=== PATIENT | female | born 1965 | race Caucasian/White ===

== ENCOUNTER 2021-05-11 11:01 | Emergency (ER) | payer BC ==
[2021-05-11] MEDS: Lactated Ringers 1,000 ML IV ONE (11:32)
[2021-05-11 12:00] LABS: CHLORIDE,CL 100 mmol/L (98-107); SODIUM,NA 138 mmol/L (136-145)
[2021-05-11 12:01] LABS: ANION GAP 14.9 mmol/L (5-15)
--- NOTE | 2021-05-11 12:23 | EDM.PDOC ---
ED HPI GENERAL MEDICAL PROBLEM - General Chief Complaint: General Time Seen by Provider: 05/11/21 11:05 Source of Information: Reports: Patient, EMS, Old Records History Limitations: Reports: No Limitations - History of Present Illness INITIAL COMMENTS - FREE TEXT/NARRATIVE: Pt. presents to ER via EMS. Pt. is from [place] and is here in [place] for a sports event. Pt. has a history of stage 4B non small cell lung carcinoma. She is undergoing palliative chemotherapy and is due for a run on Thursday. Pt. son states that the patient developed nausea and vomiting today. She states that she only vomited once today and states once yesterday AM as well. Pt. states that she has not been having any diarrhea or abdominal pain. Denies any bloody stools. Son states that she also appeared to be confused and was non-communicative at times. EMS relates that she had an episode where she was minimally responsive prior to arrival in ER. EMS was summoned. They state that pt. was initially dismissive of her symptoms and was resistant to coming to ER. She eventually did consent to transport to ER. Pt. was hypotensive in the field with blood pressure in the 80s/50s and with heart rate of 115. Pt. states that she has been afebrile. She denies any cough. No chest pain or shortness of breath. Denies any jaw, arm, neck or back pain. Denies any rashes or erythema. She denies any sore throat, rhinorrhea, dark or bloody stools. Pt. has a history of orthostatic hypotension. She frequently receives IV saline infusions at [facility]. Pt. is on dexamethasone 4 mg 3 times per day. Pt. denies any facial or extremity numbness, headache, or unilateral extremity weakness. Onset: Today Onset Date: 05/11/21 Location: Reports: Generalized Associated Symptoms: Reports: Confusion, Nausea/Vomiting. Denies: Chest Pain, Cough, cough w sputum, Diaphoresis, Fever/Chills, Headaches, Loss of Appetite, Malaise, Rash, Seizure, Shortness of Breath, Syncope, Weakness - Related Data Allergies Allergy/AdvReac Type Severity Reaction Status Date / Time Penicillins Allergy Other Verified 05/11/21 11:26 ED ROS GENERAL - Review of Systems Review Of Systems: See Below Constitutional: Reports: No Symptoms HEENT: Reports: No Symptoms Respiratory: Reports: No Symptoms Cardiovascular: Reports: No Symptoms Endocrine: Reports: No Symptoms GI/Abdominal: Reports: Nausea, Vomiting. Denies: Abdominal Pain, Black Stool, Bloody Stool, Diarrhea, Difficulty Swallowing, Distension, Hematemesis, Hematochezia, Melena : Reports: No Symptoms Musculoskeletal: Reports: No Symptoms Skin: Reports: No Symptoms Neurological: Reports: Confusion, Other (episodes of decreased level of consciousness.). Denies: Headache, Paresthesia, Seizure, Tremors, Change in Speech Psychiatric: Reports: No Symptoms Hematologic/Lymphatic: Reports: Other (See HPI) ED EXAM, GENERAL - Physical Exam Exam: See Below Exam Limited By: No Limitations General Appearance: Alert, WD/WN, No Apparent Distress Eye Exam: Bilateral Eye: EOMI, Normal Fundi, Normal Inspection, PERRL Throat/Mouth: Normal Inspection, Normal Lips, Normal Teeth, Normal Oropharynx, Normal Voice, No Airway Compromise Head: Atraumatic, Normocephalic Neck: Normal Inspection, Supple, Non-Tender, Full Range of Motion Respiratory/Chest: No Respiratory Distress, Lungs Clear, Normal Breath Sounds, No Accessory Muscle Use, Chest Non-Tender Cardiovascular: Normal Peripheral Pulses, Regular Rate, Rhythm, No Edema, No JVD, No Murmur Peripheral Pulses: 4+: Radial (L) GI/Abdominal: Soft, Non-Tender, No Organomegaly, No Distention, No Mass (Female) Exam: Deferred Rectal (Female) Exam: Deferred Back Exam: Normal Inspection, Full Range of Motion Extremities: Normal Inspection, Normal Range of Motion, Non-Tender, No Pedal Edema, Normal Capillary Refill Neurological: Alert, Oriented, CN II-XII Intact, Normal Cognition, No M otor/Sensory Deficits, Other (Pt. has been alert and oriented since arriving in ER. She is alert to time, date, and place. No pronator drift. Tool Hardener strength 5/5. Strength in lower extremities are symmetrical.) Psychiatric: Anxious, Tearful Skin Exam: Warm, No Rash, Pallor #1 Interpretation EKG Date: 05/11/21 Rhythm: NSR [place]: Normal P-Wave: Present QRS: Normal ST-T: Normal QT: Normal Course - Vital Signs Last Recorded V/S: Last Vital Signs Temp 37.2 C 05/11/21 11:05 Pulse 104 H 05/11/21 13:00 Resp 16 05/11/21 13:00 BP 90/60 05/11/21 13:00 Pulse Ox 95 05/11/21 13:00 - Orders/Labs/Meds Orders: Active Orders 24 hr Category Date Time Status CULTURE BLOOD [BC] Stat Lab 05/11/21 12:35 Received CULTURE BLOOD [BC] Stat Lab 05/11/21 12:39 Received CULTURE URINE [RM] Stat Lab 05/11/21 12:55 Received Lactated Ringers [Ringers, Lactated] 1,000 ml Med 05/11/21 12:30 Active IV ASDIRECTED Blood Culture x2 Reflex Set [OM.PC] Stat Oth 05/11/21 12:08 Ordered Medication Orders Lactated Ringer's (Ringers, Lactated) 1,000 mls @ 1,000 mls/hr IV ASDIRECTED LAUREN Last Admin: 05/11/21 12:28 Dose: 1,000 mls/hr Documented by: ANNE Labs: Laboratory Tests 05/11/21 05/11/21 05/11/21 Range/Units 11:23 11:23 11:23 WBC 12.2 H (4.0-10.0) x10^3/uL RBC 3.00 L (4.00-5.50) x10^6/uL Hgb 9.8 L (12.0-16.0) g/dL Hct 29.6 L (33.0-47.0) % MCV 98.7 H (78.0-93.0) fL MCH 32.7 H (26.0-32.0) pg MCHC 33.1 (32.0-36.0) g/dL RDW Coeff of Daniel 21.3 H (10.0-15.0) % Plt Count 350 (130-400) x10^3/uL Add Manual Diff Yes Neutrophils % (Manual) 81 H (50-80) % Band Neutrophils % 4 (0-6) % Lymphocytes % (Manual) 7 L (25-50) % Monocytes % (Manual) 6 (2-11) % Metamyelocytes % 2 H (0) % Platelet Estimate Adequate Anisocytosis 3+ marked H Sodium 138 (136-145) mmol/L Potassium 3.9 (3.5-5.1) mmol/L Chloride 100 (98-107) mmol/L Carbon Dioxide 27 (21-32) mmol/L Anion Gap 14.9 (5-15) mmol/L BUN 18 (7-18) mg/dL Creatinine 1.4 H (0.55-1.02) mg/dL Est Cr Clr Drug Dosing TNP Estimated GFR (MDRD) 39 Glucose 107 H (70-99) mg/dL Lactic Acid 1.5 (0.4-2.0) mmol/L Calcium 9.4 (8.5-10.1) mg/dL Corrected Calcium 10.0 (8.5-10.1) mg/dL Phosphorus 4.2 (2.6-4.7) mg/dL Magnesium 1.9 (1.8-2.4) mg/dL Total Bilirubin 0.4 (0.2-1.0) mg/dL AST 15 (15-37) U/L ALT 23 (14-59) U/L Alkaline Phosphatase 106 (46-116) U/L Troponin I High Sens (<=51) ng/L Total Protein 7.2 (6.4-8.2) g/dL Albumin 3.3 L (3.4-5.0) g/dL Globulin 3.9 Albumin/Globulin Ratio 0.85 Procalcitonin (0.1-0.50) ng/mL Urine Color (YELLOW) Urine Appearance (CLEAR) Urine pH (5.0-8.0) Ur Specific [place] Urine Protein (NEGATIVE) mg/dL Urine Glucose (UA) (NEGATIVE) mg/dL Urine Ketones (NEGATIVE) mg/dL Urine Occult Blood (NEGATIVE) Urine Nitrite (NEGATIVE) Urine Bilirubin (NEGATIVE) Urine Urobilinogen (0.2) EU/dL Ur Leukocyte Esterase (NEGATIVE) U Hyaline Cast (Auto) Urine RBC (NOT SEEN) /HPF Urine WBC (NOT SEEN) /HPF Ur Squamous Epith Cells (NOT SEEN) /HPF Urine Bacteria (NOT SEEN) /HPF Urine Mucus (NOT SEEN) /LPF 05/11/21 05/11/21 05/11/21 Range/Units 11:23 11:23 12:55 WBC (4.0-10.0) x10^3/uL RBC (4.00-5.50) x10^6/uL Hgb (12.0-16.0) g/dL Hct (33.0-47.0) % MCV (78.0-93.0) fL MCH (26.0-32.0) pg MCHC (32.0-36.0) g/dL RDW Coeff of Daniel (10.0-15.0) % Plt Count (130-400) x10^3/uL Add Manual Diff Neutrophils % (Manual) (50-80) % Band Neutrophils % (0-6) % Lymphocytes % (Manual) (25-50) % Monocytes % (Manual) (2-11) % Metamyelocytes % (0) % Platelet Estimate Anisocytosis Sodium (136-145) mmol/L Potassium (3.5-5.1) mmol/L Chloride (98-107) mmol/L Carbon Dioxide (21-32) mmol/L Anion Gap (5-15) mmol/L BUN (7-18) mg/dL Creatinine (0.55-1.02) mg/dL Est Cr Clr Drug Dosing Estimated GFR (MDRD) Glucose (70-99) mg/dL Lactic Acid (0.4-2.0) mmol/L Calcium (8.5-10.1) mg/dL Corrected Calcium (8.5-10.1) mg/dL Phosphorus (2.6-4.7) mg/dL Magnesium (1.8-2.4) mg/dL Total Bilirubin (0.2-1.0) mg/dL AST (15-37) U/L ALT (14-59) U/L Alkaline Phosphatase (46-116) U/L Troponin I High Sens 5 (<=51) ng/L Total Protein (6.4-8.2) g/dL Albumin (3.4-5.0) g/dL Globulin Albumin/Globulin Ratio Procalcitonin <0.05 L (0.1-0.50) ng/mL Urine Color Light yellow (YELLOW) Urine Appearance Slightly cloudy H (CLEAR) Urine pH 5.5 (5.0-8.0) Ur Specific [place] 1.015 Urine Protein Negative (NEGATIVE) mg/dL Urine Glucose (UA) Negative (NEGATIVE) mg/dL Urine Ketones Negative (NEGATIVE) mg/dL Urine Occult Blood Negative (NEGATIVE) Urine Nitrite Negative (NEGATIVE) Urine Bilirubin Negative (NEGATIVE) Urine Urobilinogen 0.2 (0.2) EU/dL Ur Leukocyte Esterase Moderate H (NEGATIVE) U Hyaline Cast (Auto) Few Urine RBC 0-5 (NOT SEEN) /HPF Urine WBC 20-30 H (NOT SEEN) /HPF Ur Squamous Epith Cells Few H (NOT SEEN) /HPF Urine Bacteria Rare (NOT SEEN) /HPF Urine Mucus Occasional H (NOT SEEN) /LPF Meds: Medications Generic Name Dose Route Start Last Admin Trade Name Freq PRN Reason Stop Dose Admin Lactated Ringer's 1,000 mls @ 1,000 mls/hr 05/11/21 12:30 05/11/21 12:28 Ringers, Lactated IV 1,000 mls/hr ASDIRECTED LAUREN Administration Discontinued Medications Generic Name Dose Route Start Last Admin Trade Name Freq PRN Reason Stop Dose Admin Ceftriaxone Sodium 2 gm 05/11/21 13:35 05/11/21 13:44 Ceftriaxone 2 Gm Vial IVPUSH 05/11/21 13:36 2 gm STAT ONE Administration Hydrocortisone Sodium Succinate 100 mg 05/11/21 12:12 05/11/21 12:32 Hydrocortisone Sodium Succinate 100 Mg/2 Ml Sdv IVPUSH 05/11/21 12:13 100 mg ONETIME ONE Administration Lactated Ringer's 1,000 mls @ 1,000 mls/hr 05/11/21 11:21 05/11/21 11:32 Ringers, Lactated IV 05/11/21 12:20 1,000 mls/hr ONETIME ONE Administration - Re-Assessments/Exams Free Text/Narrative Re-Assessment/Exam: IV access established. Pt. was given a total of 2 liters of lactated ringers in ER. She was given hydrocortisone 100mg IV for possible adrenal insufficiency. Pt. was given IV rocephin 2 gm IV after consulting oncologist (pt. was resistive to starting antibiotics without their approval). Blood cultures x 2 were ordered prior to starting the rocephin. Departure - Departure Time of Disposition: 13:54 Disposition: DC/Tfer to [facility] 02 Clinical Impression: UTI, Urinary tract infectious disease, TESSY (acute kidney injury), Dehydration - Discharge Information Referrals: PCP,Not In Area [Primary Care Provider] - Forms: ED Department Discharge, Interfacility Transfer [facility]AN Sepsis Event Note (ED) - Evaluation Sepsis Screening Result: No Definite Risk - Focused Exam Vital Signs: Vital Signs Temp Pulse Resp BP Pulse Ox 05/11/21 13:00 104 H 16 90/60 95 05/11/21 12:00 110 H 16 85/45 L 96 05/11/21 11:05 37.2 C 115 H 18 85/57 L 97 - Problem List Review Problem List Initiated/Reviewed/Updated: Yes - My Orders Last 24 Hours: My Active Orders 05/11/21 12:08 Blood Culture x2 Reflex Set [OM.PC] Stat 05/11/21 12:30 Lactated Ringers [Ringers, Lactated] 1,000 ml IV ASDIRECTED 05/11/21 12:35 CULTURE BLOOD [BC] Stat 05/11/21 12:39 CULTURE BLOOD [BC] Stat 05/11/21 12:55 CULTURE URINE [RM] Stat - Assessment/Plan Last 24 Hours: My Active Orders 05/11/21 12:08 Blood Culture x2 Reflex Set [OM.PC] Stat 05/11/21 12:30 Lactated Ringers [Ringers, Lactated] 1,000 ml IV ASDIRECTED 05/11/21 12:35 CULTURE BLOOD [BC] Stat 05/11/21 12:39 CULTURE BLOOD [BC] Stat 05/11/21 12:55 CULTURE URINE [RM] Stat Plan: Discussed case at length with Dr. Major at [facility]. He advised admitting the patient here for observation. Family again was resistive to this, wanting instead to go to [facility]. Pt. will be transported via private vehicle. [facility] [facility] All questions were answered.
[2021-05-11] MEDS: Lactated Ringers 1,000 ML IV SCH (12:28)
[2021-05-11] MEDS: Hydrocortisone Sodium Succinate 100 MG/2 ML SDV IVPUSH ONE (12:32)
--- NOTE | 2021-05-11 12:49 | CR ---
[id number] RAD/RAD Chest PA or AP 1V EXAM: FRONTAL CHEST INDICATION: HYPOTENSION, HISTORY OF METASTATIC CANCER. COMPARISON: None. DISCUSSION: Mild right base atelectasis and possible infiltrates. Scattered nodular opacities in both lungs measuring up to 15 mm are nonspecific, but would be compatible the clinical history of metastatic disease. Normal heart size. No definite effusions. Right-sided port tip right atrium. Partially imaged sclerotic focus in the proximal right humerus, nonspecific. IMPRESSION: 1. Mild right base atelectasis and/or infiltrates. 2. Bilateral pulmonary nodules most compatible with metastatic disease. Nuno Barber MD 05/11/21 [id number] Thank you for allowing us to participate in the care of your patient.
[2021-05-11] MEDS: cefTRIAXone 2 GM Vial IVPUSH ONE (13:44)
== END 2021-05-11 13:49 | disposition short-term general hospital (02) ==
LOC: VM.ED 11:01
DX: N39.0 Urinary tract infection, site not specified (principal); N17.9 Acute kidney failure, unspecified; E86.0 Dehydration; Z88.0 Allergy status to penicillin
CPT/HCPCS: 36415; 71045; 80053; 81001; 83605; 83735; 84100; 84145; 84484; 85025; 87040; 87086; 87088; 87186; 93010; 96374; 96375; 99284; 99285-25; J0696; J1720; J7120